=== PATIENT | female | born 1970 | race Caucasian/White ===

== ENCOUNTER 2016-07-29 11:31 | Outpatient (CLI) | payer OTHER ==
[~2016-07-29] VITALS: Ht 162.6 cm; Wt 75.8 kg
--- NOTE | ~2016-07-29 | P ---
[facility] [place] [address] PROCEDURE REPORT Name: SHUBHAM BARROS Room #: REG Namita Verma#: [id number] Admission: 07/29/16 Attend Phys: Rusty Powers Discharge: Date of : 68 Report #: [id number] THIS REPORT FOR: //name// CC: MYRA Cid DATE OF SERVICE: 07/29/2016 PROCEDURE PERFORMED: Upper endoscopy with Botox injection and Savary dilation. HISTORY OF PRESENT ILLNESS: The patient is a 45-year-old female with recurrent dysphagia. She underwent an upper esophageal manometry test, which showed hypertensive lower esophageal sphincter. She previously had several dilations in the past which were minimally helpful. We then placed the patient on calcium channel marcellus without any improvement, therefore proceeded with EGD and Botox injection, which was performed just in the last few weeks. She reports mild improvement, but still having significant dysphagia. We therefore discussed possible surgery such as Heller myotomy; however, the plan is to repeat Botox one further time to see if this would be beneficial. DESCRIPTION OF PROCEDURE: The risks and benefits of the procedure were explained to the patient, those risks including but not limited to bleeding, perforation, the risk of sedation. She understood these risks and gave informed consent. Sedation was given using propofol per anesthesia. Next, using a standard Mandoyon upper endoscope, the scope was placed in the patient's mouth and advanced under direct vision through the esophagus, stomach and into the second portion of the duodenum. The esophagus was normal throughout. The GE junction was normal. Overall, the gastric mucosa was normal. The pylorus was normal and patent. The duodenal bulb, first and second portion were all normal. The scope was then brought back into the distal esophagus and Botox was injected into the lower esophageal sphincter area near the GE junction in a 4 quadrant pattern without difficulty. Next, a 51-Wolof Savary dilation was then performed of the esophagus without difficulty. The scope was then withdrawn and the procedure terminated. The patient tolerated the procedure well. IMPRESSION: Normal upper endoscopy. RECOMMENDATIONS: Observe the patient post-Botox injection and a Savary dilation. [facility] [address] [place] [address] PROCEDURE REPORT Name: SHUBHAM BARROS Room #: REG [facility] Santos.#: [id number] Admission: 07/29/16 Attend Phys: Rusty Powers Discharge: Date of : 68 Report #: [id number] Thank you for allowing me to participate in her care. <ELECTRONICALLY SIGNED> By: Rusty Cid MD 07/29/16 1443 [id number] 1112 Rusty Cid MD /nt
[~2016-07-29 11:31] MED LIST: 12 HOUR COLD R120 M1 PO; ALEVE220 MG PO; AMITRIPTYLINE H25 M2 PO; APAP500 PO; AVELOX 400 MG400 MG PO; AZITHROMYCIN PO; CEFTIN500 MG PO; CENESTIN0.9 MG PO; CENESTIN1.25 MG PO; CLONAZEPAM 1 MG1 M1 NG; CLONAZEPAM 1 MG1 M1 PO; CODEINE-GUAIFE120 ML PO; CYMBALTA60 MG PO; DELSYM30 MG/5 M1; DESYREL PO; DIFLUCAN150 MG PO; DILTIAZEM HCL90 MG PO; DOXYCYCLINE 10100 MG PO; ESTRACE2 M3 PO; IMITREX100 MG PO; LEVOTHROID25 MCG PO; LEVOTHYROXIN0.075 MG PO; LEVOTHYROXINE0.05 MG PO; LIVALO4 MG PO; LORTAB 7.5/5001 TA3 PO; LORTABELXR PO; LYRICA 50 MG50 M1 PO; LYRICA 50 MG50 MG PO; MOBIC15 MG PO; MOBIC7.5 MG PO; MUCINEX600 MG PO; NEXIUM40 MG PO; NORCO 10-325 T1 EACH PO; ONDANSETRON HCL4 M2 PO; PATADAY2.5 ML OP; PERCOCET 5-3251 EACH PO; PHENERGAN 25 MG25 MG PO; PHENERGAN-CODE120 ML PO; PREDNISONE; PROMETHAZI6.25 MG/2 PO; PROMETHAZI6.25 MG/5 PO; PROMETHAZINE-C120 ML PO; PROTONIX40 M2 PO; RESTORIL15 MG PO; TOPROL XL25 MG PO; TRIAMTERENE/HCT1 CA1 PO; VALIUM5 MG PO; VITAMIN D 5050000 I1 PO; XIFAXAN550 M1 PO; ZANTAC 150MG T150 M1 PO; ZOLOFT PO; ZOLOFT100 MG PO
[2016-07-29 11:52] LABS: ABSOLUTE NEUTROPHILS 6.5 thou/uL (1.4-8.2); BASOPHILS 0.8 % (0.0-2.0); EOSINOPHILS 1.3 % (0.0-3.0); HEMOGLOBIN 12.9 gm/dL (12.0-15.0); LYMPHOCYTES 16.6 % (24.0-44.0); MCH 29.8 pg (26.0-34.0); MCHC 33.9 g/dL (28.0-37.0); MCV 87.7 fL (80.0-100.0); MONOCYTES 5.4 % (1.0-8.0); PLATELET COUNT 232 thou/uL (150-400); POLYS 75.9 % (36.0-66.0); RBC 4.33 mil/uL (4.20-5.00); RDW 12.8 % (10.5-14.5); WBC 8.6 thou/uL (4.0-11.0)
[2016-07-29 11:54] LABS: URINE BILIRUBIN NEGATIVE (Negative); URINE BLOOD NEGATIVE (Negative); URINE COLOR YELLOW; URINE GLUCOSE-RANDOM* NEGATIVE (Negative); URINE KETONES NEGATIVE (Negative); URINE NITRITE NEGATIVE (Negative); URINE PROTEIN (DIPSTICK) NEGATIVE (Negative); URINE UROBILINOGEN 0.2 E.U./dl (0.2-1.0)
[2016-07-29 11:55] LABS: MANUAL DIFF NO
[2016-07-29 12:03] LABS: ANION GAP 8 mmol/L (7-16); BUN 21 mg/dL (7-18); CALCIUM 9.4 mg/dL (8.5-10.1); CHLORIDE 102 mmol/L (98-107); CO2 28 mmol/L (21-32); CREATININE 1.1 mg/dL (0.6-1.3); GLUCOSE 113 mg/dL (70-99); SODIUM 138 mmol/L (136-145)
[2016-07-29 12:09] LABS: ALBUMIN 3.6 g/dL (3.4-5.0); ALKALINE PHOSPHATASE 103 U/L (46-116); DIRECT BILIRUBIN < 0.1 mg/dL (<0.1-0.3); SGOT 21 U/L (15-37); SGPT 23 U/L (30-65); TOTAL BILIRUBIN 0.4 mg/dL (<0.1-1.0); TOTAL PROTEIN 7.2 g/dL (6.4-8.2)
[2016-07-29 13:54] VITALS: BP 102/68
== END 2016-07-29 14:00 | disposition home or self-care (01) ==
LOC: GI 14:00
PROVIDERS: Emergency Medicine
DX: R13.10 Dysphagia, unspecified (principal)
CPT/HCPCS: 62110

== ENCOUNTER → 2016-12-16 | Outpatient (CLI) | payer OTHER | LOC: RAD 01:44 | DX: Z12.31 Encounter for screening mammogram for malignant neoplasm of breast (principal) ==

== ENCOUNTER → 2017-01-06 | Outpatient (CLI) | payer OTHER ==
[~2017-01-06] VITALS: Ht 162.6 cm; Wt 79.4 kg
[~2017-01-06] MED LIST changes: +AMBIEN 5 MG TABL5 M1 PO; +HYDROXYZINE HCL25 M1 PO; +LINZESS72 MCG PO; +NITROGLYCERIN PO; +NITROGLYCERIN0.4 MG SUBLING; +REXULTI0.5 MG PO; +TESSALON PERLE100 MG PO; +VITAMIN D50000 UNIT PO
--- NOTE | ~2017-01-06 | P ---
[facility] [place] [address] PROCEDURE REPORT Name: SHUBHAM BARROS Room #: REG CHRISTINE Verma#: [id number] Admission: 01/06/17 Attend Phys: Rusty Powers Discharge: Date of : 68 Report #: [id number] THIS REPORT FOR: //name// CC: NICCI Cid DATE OF SERVICE: 01/06/2017 PROCEDURE PERFORMED: Upper endoscopy with balloon dilation of the esophagus. HISTORY OF PRESENT ILLNESS: The patient is a 46-year-old female with a history of recurrent dysphagia and chest pain who has undergone extensive workup, she has had multiple dilations in the past, esophageal manometry at one point showed increased lower esophageal sphincter pressure as well as a hypercontractile esophagus. She has undergone trials of Levsin, diltiazem, nitroglycerin as well as Botox injections, and multiple dilations, which have been minimally helpful. Previously, I have dilated with Savary on one occasion with a balloon dilator, which seemed to be most beneficial for her dysphagia. She continues to have upper chest pain, which is thought to be secondary to esophageal dysmotility. The plan today is for EGD with balloon dilation. PROCEDURE: The risks and benefits of the procedure were explained to the patient, those risks including, but not limited to bleeding, perforation, the risk of sedation. She understood these risks and gave informed consent. Sedation was given using propofol per anesthesia. Next, using a standard Fujinon upper endoscope, the scope was placed in the patient's mouth and advanced under direct vision through the esophagus, stomach, and into the second portion of the duodenum. The esophagus was normal throughout. The GE junction was normal. No evidence of esophagitis. No stricture. Upon entering the stomach, a small amount of food residual was noted, otherwise the gastric mucosa was normal. The pylorus was normal and patent. The duodenal bulb, first and second portion were all normal. The scope was then brought back up into the patient's esophagus and a balloon dilation of the GE junction was then performed using a maximum diameter of 18 mm, this was held in place for one minute. There was no evidence of mucosal tear after dilation. The scope was then withdrawn and the procedure terminated. The patient tolerated the procedure well. IMPRESSION: 1. Small food residual noted in the stomach. 2. Otherwise, normal upper endoscopy. RECOMMENDATIONS: 1. Observe the patient post-dilation. 2. Overall, difficult case as the patient has persistent symptoms likely secondary to esophageal dysmotility. She has been on multiple medications in [address] [address] PROCEDURE REPORT Name: SHUBHAM BARROS Room #: REG [facility] Bayron#: [id number] Admission: 01/06/17 Attend Phys: Rusty Powers Discharge: Date of : 68 Report #: [id number] the past. We even discussed surgery. At this point, since she is still having significant pain episodes at times, I recommend trying Lortab on a p.r.n. basis when she has severe pain, otherwise continue Zantac and her other medications. Thank you for allowing me to participate in her care. <ELECTRONICALLY SIGNED> By: Rusty Cid MD 01/08/17 1102 0951 1122 Rusty Cid MD /nt
== END | disposition home or self-care (01) ==
LOC: GI 08:39
DX: R13.10 Dysphagia, unspecified (principal); K22.8 Other specified diseases of esophagus; K21.9 Gastro-esophageal reflux disease without esophagitis; E78.00 Pure hypercholesterolemia, unspecified; F41.8 Other specified anxiety disorders; M79.7 Fibromyalgia; F32.89 Other specified depressive episodes; Z88.0 Allergy status to penicillin; Z90.49 Acquired absence of other specified parts of digestive tract; Z90.710 Acquired absence of both cervix and uterus; Z98.890 Other specified postprocedural states; Z91.040 Latex allergy status; Z88.2 Allergy status to sulfonamides; Z88.6 Allergy status to analgesic agent
CPT/HCPCS: 62110; 62900

== ENCOUNTER → 2017-04-05 | Outpatient (CLI) | payer OTHER ==
[~2017-04-05] VITALS: Ht 162.6 cm; Wt 78.5 kg
[~2017-04-05] MED LIST changes: +AMBIEN 10 MG TA10 MG PO; +ESTRADIOL 1 MG T1 M1 PO; +KLONOPIN1 MG PO; +LEVOXYL75 MCG PO; +MAXZIDE-25 MG1 EACH PO; +SEROQUEL XR200 MG PO; +VISTARIL 25 MG25 M1 PO
--- NOTE | ~2017-04-05 | P ---
[facility] [place] [address] PROCEDURE REPORT Name: SHUBHAM BARROS Room #: REG CHRISTINE Vemra#: [id number] Admission: 04/05/17 Attend Phys: Rusty Powers Discharge: Date of : 68 Report #: [id number] THIS REPORT FOR: //name// CC: NICCI Kingsley DATE OF SERVICE: 04/05/2017 PROCEDURE PERFORMED: Upper endoscopy with esophageal dilation. HISTORY OF PRESENT ILLNESS: The patient is a 46-year-old female with complex history of dysphagia, previously underwent Savary dilations with benefit, began having increasing dysphagia, underwent esophageal manometry suggesting an achalasia type picture. There have been discussions of possible surgery; however, last dilation was performed with a balloon dilation using 18 mm max and this has been the most helpful. She is now having dysphagia again. The plan is for repeat balloon dilation. DESCRIPTION OF PROCEDURE: The risks and benefits of the procedure were explained to the patient. Those risks including but not limited to bleeding, perforation, the risk of sedation. She understood these risks and gave informed consent. Sedation was given using propofol per Anesthesia. Next, using a standard Firebaseinon upper endoscope, the scope was placed in the patient's mouth and advanced under direct vision through the esophagus, stomach and into the second portion of the duodenum. The larynx was normal in appearance. The esophagus was normal throughout. No evidence of obvious stricture or esophagitis. Overall, the gastric mucosa was normal. The pylorus was normal and patent. The duodenal bulb, first and second portion were all normal. The scope was then brought back up into the patient's distal esophagus and CRE balloon catheter was advanced through the scope. Next, the GE junction was dilated initially with an 18 mm, this was held in place for 1 minute; later a 19 mm, also held in place for 1 minute. After the 19, there was a small mucosal tear. No significant bleeding. No further dilations were performed. The scope was then withdrawn and the procedure terminated. The patient tolerated the procedure well. IMPRESSION: Normal upper endoscopy, status post balloon dilation of the gastroesophageal junction as described above. RECOMMENDATIONS: Observe the patient post-procedure. [facility] [address] [place] [address] PROCEDURE REPORT Name: SHUBHAM BARROS [id number] Admission: 04/05/17 Attend Phys: Rusty Powers Discharge: Date of : 68 Report #: [id number] Thank you for allowing me to participate in her care. By: [id number] 51 Rusty Cid MD /nt
== END | disposition home or self-care (01) ==
LOC: GI 08:43
DX: R13.19 Other dysphagia (principal); E78.00 Pure hypercholesterolemia, unspecified; M79.7 Fibromyalgia; F32.89 Other specified depressive episodes; F41.8 Other specified anxiety disorders; K21.9 Gastro-esophageal reflux disease without esophagitis; Z90.49 Acquired absence of other specified parts of digestive tract; Z90.710 Acquired absence of both cervix and uterus; Z98.890 Other specified postprocedural states; Z79.899 Other long term (current) drug therapy; Z91.040 Latex allergy status; Z88.0 Allergy status to penicillin; Z88.2 Allergy status to sulfonamides; Z88.8 Allergy status to other drugs, medicaments and biological substances; Z88.6 Allergy status to analgesic agent; Z87.19 Personal history of other diseases of the digestive system
CPT/HCPCS: 62110; 62900

== ENCOUNTER → 2017-09-20 | Outpatient (CLI) | payer OTHER ==
[~2017-09-20] VITALS: Ht 162.6 cm; Wt 77.1 kg
[~2017-09-20] MED LIST changes: +ACETAMINOPHEN-1 EAC1 PO; +SYNTHROID50 MCG PO; +TYLENOL325 MG PO
--- NOTE | ~2017-09-20 | P ---
[facility] [place] [address] PROCEDURE REPORT Name: SHUBHAM BARROS Room #: REG [facility] Bayron#: [id number] Admission: 09/20/17 Attend Phys: Rusty Powers Discharge: Date of : 68 Report #: [id number] THIS REPORT FOR: //name// CC: Rusty Cid [facility] physician/PCP DATE OF SERVICE: 09/20/2017 PROCEDURE PERFORMED: Upper endoscopy with esophageal dilation. HISTORY OF PRESENT ILLNESS: The patient is a 47-year-old female with a complex history of dysphagia. She previously underwent Savary dilations with benefit, but began having increasing symptoms. Manometry test suggesting achalasia type picture. We have discussed possible surgery in the past; however, balloon dilations of the GE junction have been the most helpful. She is now here for repeat dilation for recurrent dysphagia. DESCRIPTION OF PROCEDURE: The risks and benefits of the procedure were explained to the patient, those risks including but not limited to bleeding, perforation, the risk of sedation. She understood these risks and gave informed consent. Sedation was given using propofol per Anesthesia. Next, using a standard Olympus upper endoscope, the scope was placed in the patient's mouth and advanced under direct vision through the esophagus, stomach and into the second portion of the duodenum. The larynx was normal in appearance. The esophagus was normal throughout. The GE junction was normal. Overall, the gastric mucosa was normal. The pylorus was normal and patent. The duodenal bulb, first and second portion were all normal. The scope was then brought back up into the patient's stomach, into her distal esophagus and a CRE balloon dilator catheter was advanced through the scope. Initially the balloon was dilated to 18 mm and held in place for one minute. No evidence of mucosal tear. Next, 19 mm was held in place for one minute. Small mucosal tear was noted at the GE junction. At this point, no further dilations were performed. There was no evidence of bleeding. The scope was then withdrawn and the procedure terminated. The patient tolerated the procedure well. IMPRESSION: Status post balloon dilation of the GE junction as described above. RECOMMENDATIONS: Observe the patient post-procedure and repeat on a p.r.n. basis. Thank you for allowing me to participate in her care. By: 1033 1130 Rusty Cid MD /nt
== END | disposition home or self-care (01) ==
LOC: GI 08:49
DX: R13.19 Other dysphagia (principal); K21.9 Gastro-esophageal reflux disease without esophagitis; M79.7 Fibromyalgia; F32.9 Major depressive disorder, single episode, unspecified; F41.9 Anxiety disorder, unspecified; E78.5 Hyperlipidemia, unspecified; Z90.49 Acquired absence of other specified parts of digestive tract; Z90.710 Acquired absence of both cervix and uterus; Z98.890 Other specified postprocedural states; Z87.19 Personal history of other diseases of the digestive system; Z88.2 Allergy status to sulfonamides; Z88.8 Allergy status to other drugs, medicaments and biological substances; Z91.040 Latex allergy status; Z88.0 Allergy status to penicillin; Z79.899 Other long term (current) drug therapy
CPT/HCPCS: 62110; 62900

== ENCOUNTER → 2018-02-07 | Outpatient (CLI) | payer OTHER ==
[~2018-02-07] VITALS: Ht 162.6 cm; Wt 74.4 kg
[~2018-02-07] MED LIST changes: +QUETIAPINE FUM300 M1 PO; +TRIAMCINOLONE A80 G2 TOP; +ZOLPIDEM TART12.5 M1 PO
--- NOTE | ~2018-02-07 | P ---
[facility] [place] [address] PROCEDURE REPORT Name: SHUBHAM BARROS Room #: REG CHRISTINE Verma#: [id number] Admission: 02/07/18 Attend Phys: Rusty Powers Discharge: Date of : 68 Report #: [id number] THIS REPORT FOR: //name// CC: MYRA Kinglsey Physician staff DATE OF SERVICE: 02/07/2018 PROCEDURE PERFORMED: Upper endoscopy with esophageal dilation. HISTORY OF PRESENT ILLNESS: The patient is a 47-year-old female with recurrent dysphagia. She underwent extensive testing including manometry suggesting achalasia type picture. We have discussed the surgery in the past; however, balloon dilations of the GE junction have been the most helpful, previous AV dilations were not helpful recently. Last upper endoscopy with balloon dilation was 09/20/2017. She now reports recurrent dysphagia. Plan is for repeat EGD with dilation. DESCRIPTION OF PROCEDURE: The risks and benefits of the procedure were explained to the patient, those risks including but not limited to bleeding, perforation, the risk of sedation. She understood these risks and gave informed consent. Sedation was given using propofol and ketamine per Anesthesia. Next, using a standard Olympus upper endoscope, the scope was placed in the patient's mouth and advanced under direct vision through the esophagus, stomach and into the second portion of the duodenum. The esophagus was normal throughout. The GE junction was normal. Overall, the gastric mucosa was normal. The pylorus was normal and patent. The duodenal bulb, first and second portion were all normal. The scope was then brought back up into the patient's distal esophagus and a CRE 18 mm balloon was inflated at the GE junction and held in place for one minute. No evidence of mucosal tear after dilation. The balloon was reinsufflated to 19 mm, held in place for one minute. A small mucosal tear was noted at this time. No further dilations were performed. No bleeding was noted. At this point, the scope was then withdrawn and the procedure terminated. The patient tolerated the procedure well. IMPRESSION: 1. Status post balloon dilation of the distal esophagus for history of achalasia type picture. 2. Otherwise normal upper endoscopy. RECOMMENDATIONS: 1. Observe the patient post-procedure. 2. Repeat on a p.r.n. basis. [address] [address] PROCEDURE REPORT Name: SHUBHAM BARROS Room #: REG CHRISTINE Verma#: [id number] Admission: 02/07/18 Attend Phys: Rusty Powers Discharge: Date of : 68 Report #: [id number] Thank you for allowing me to participate in her care. <ELECTRONICALLY SIGNED> By: Rusty Cid MD 02/12/18 0903 0928 1548 Rusty Cid MD /nt
== END | disposition home or self-care (01) ==
LOC: GI 08:22
DX: R13.19 Other dysphagia (principal); F32.9 Major depressive disorder, single episode, unspecified; F41.9 Anxiety disorder, unspecified; E78.5 Hyperlipidemia, unspecified; K21.9 Gastro-esophageal reflux disease without esophagitis; M79.7 Fibromyalgia; E03.9 Hypothyroidism, unspecified; Z93.4 Other artificial openings of gastrointestinal tract status; Z90.710 Acquired absence of both cervix and uterus; Z90.49 Acquired absence of other specified parts of digestive tract; Z98.890 Other specified postprocedural states; Z79.899 Other long term (current) drug therapy; Z88.2 Allergy status to sulfonamides; Z88.8 Allergy status to other drugs, medicaments and biological substances; Z91.040 Latex allergy status
CPT/HCPCS: 62110; 62900

== ENCOUNTER → 2018-04-04 | Outpatient (CLI) | payer OTHER ==
[~2018-04-04] VITALS: Ht 162.6 cm; Wt 72.9 kg
[2018-04-04 13:59] VITALS: BP 119/86
== END | disposition home or self-care (01) ==
LOC: PAIN 11:55
DX: M54.16 Radiculopathy, lumbar region (principal); Z88.2 Allergy status to sulfonamides; Z88.8 Allergy status to other drugs, medicaments and biological substances; Z88.1 Allergy status to other antibiotic agents; Z91.040 Latex allergy status; Z79.899 Other long term (current) drug therapy

== ENCOUNTER → 2018-04-18 | Outpatient (CLI) | payer OTHER ==
[~2018-04-18] VITALS: Ht 162.6 cm; Wt 72.3 kg
[~2018-04-18] MED LIST changes: +LATUDA40 MG PO; +ZALEPLON 10 MG10 M1 PO
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
[2018-04-18 10:51] VITALS: BP 109/79
== END | disposition home or self-care (01) ==
LOC: PAIN 10:21
DX: M79.18 Myalgia, other site (principal); E03.9 Hypothyroidism, unspecified; E78.5 Hyperlipidemia, unspecified; M35.00 Sjogren syndrome, unspecified; G43.909 Migraine, unspecified, not intractable, without status migrainosus; K21.9 Gastro-esophageal reflux disease without esophagitis; F32.9 Major depressive disorder, single episode, unspecified; F41.9 Anxiety disorder, unspecified; R42 Dizziness and giddiness; Z91.040 Latex allergy status; Z87.19 Personal history of other diseases of the digestive system; Z79.899 Other long term (current) drug therapy; Z88.8 Allergy status to other drugs, medicaments and biological substances; Z98.890 Other specified postprocedural states

== ENCOUNTER → 2018-04-27 | Outpatient (CLI) | payer OTHER ==
[~2018-04-27] VITALS: Ht 162.6 cm; Wt 72.8 kg
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
[2018-04-27 09:40] VITALS: BP 118/85
--- NOTE | 2018-04-27 10:02 | NUR ---
Pain Clinic Assessment: 1. History of Osteoarthritis: Not Applicable History of Rheumatoid Arthritis: Not Applicable 2. Height: 5 ft. 4 in. 162.6 cm. Weight: 160.6 lb. oz. 72.848 kg. Patient's BMI: 27.6 3. Vital Signs: BP: 118/85 Pulse: 103 Resp: 14 Temp: 02 Sat: 100 ECG Mon: 4. Pain Intensity: 8 5. Fall Risk: Dizziness: N Needs help standing or walking: N Fallen in the last 3 months: N Fall risk comments: 6. Patient on Blood Thinner: None 7. History of Hypertension: N 8. Opioid Therapy greater than 6 weeks: N Opiate Contract Signed: 9. Risk Assessment Tool Provided: MODERATE RISK 10. Functional Assessment Tool: / 11. Recreational Drug Use: Never Drug Type: Tobacco Use: Never Smoker Tobacco Type: Amount or Packs/day: How Many Years: Alcohol Use: No Frequency: Quant:
== END ==
LOC: PAIN 07:43
DX: M54.16 Radiculopathy, lumbar region (principal); E03.9 Hypothyroidism, unspecified; K58.0 Irritable bowel syndrome with diarrhea; M71.9 Bursopathy, unspecified; F32.9 Major depressive disorder, single episode, unspecified; F41.8 Other specified anxiety disorders; M79.7 Fibromyalgia; E78.5 Hyperlipidemia, unspecified; K44.9 Diaphragmatic hernia without obstruction or gangrene; H81.09 Meniere's disease, unspecified ear; K21.9 Gastro-esophageal reflux disease without esophagitis; M35.00 Sjogren syndrome, unspecified; G43.909 Migraine, unspecified, not intractable, without status migrainosus

== ENCOUNTER → 2018-05-09 | Outpatient (CLI) | payer OTHER ==
[~2018-05-09] VITALS: Ht 162.6 cm; Wt 70.8 kg
[~2018-05-09] MED LIST changes: +FLEXERIL PO; +LINZESS145 MCG PO; +VITAMIN D250000 UNIT PO
--- NOTE | ~2018-05-09 | P ---
[facility] [place] [address] PROCEDURE REPORT Name: SHUBHAM BARROS Room #: REG Namita Verma#: [id number] Admission: 05/09/18 Attend Phys: Rusty Powers Discharge: Date of : 68 Report #: [id number] THIS REPORT FOR: //name// CC: MYRA Kingsley DATE OF SERVICE: 05/09/2018 PROCEDURE PERFORMED: Upper endoscopy with esophageal dilation. HISTORY OF PRESENT ILLNESS: The patient is a 47-year-old female well known to me, with a long history of intermittent dysphagia. She has undergone extensive workup, showing achalasia type picture with manometry; however, was not responding to Botox injections. We have discussed possible surgical options in the past; however, balloon dilation of the GE junction has been the most helpful. Previous Savary dilations were not as helpful. Last upper endoscopy with dilation was in 01/2018. She now has recurrent dysphagia. She also complains of abdominal pain after eating. She had a previous cholecystectomy. DESCRIPTION OF PROCEDURE: The risks and benefits of the procedure were explained to the patient, those risks including but not limited to bleeding, perforation, the risk of sedation. She understood these risks and gave informed consent. Sedation was given using propofol per Anesthesia. Next, using a standard Olympus upper endoscope, the scope was placed in the patient's mouth and advanced under direct vision through the esophagus, stomach and into the second portion of the duodenum. The larynx was normal throughout. The esophagus was normal throughout. The GE junction was normal. There was a moderate to large amount of food within the stomach, suggesting gastroparesis. The gastric mucosa that was visualized was normal. The pylorus was normal and patent. The duodenal bulb, first and second portion were all normal. The scope was then brought back up into the patient's distal esophagus and a balloon catheter was advanced through the channel into the esophagus. Initial balloon dilation of the GE junction area was performed at 18 mm and held in place for one minute. No evidence of mucosal tear. I then proceeded with 19 mm balloon dilation. Small mucosal tear was noted after balloon dilation. No evidence of bleeding. No further dilations were performed. At this point, the balloon dilator was removed. The scope was withdrawn and the procedure terminated. The patient tolerated the procedure well. IMPRESSION: 1. Status post balloon dilation as described above. 2. Food residual in the stomach suggesting gastroparesis. 3. Otherwise, normal upper endoscopy. RECOMMENDATIONS: [facility] [address] [place] [address] PROCEDURE REPORT Name: SHUBHAM BARROS Room #: REG [facility] Gerald.#: [id number] Admission: 05/09/18 Attend Phys: Rusty Powers Discharge: Date of : 68 Report #: [id number] 1. Observe the patient post dilation. 2. We will discuss options including possible promotility agent such as Reglan or erythromycin with the patient in the near future. Thank you for allowing me to participate in her care. By: [id number] [id number] Rusty Cid MD /nt
== END | disposition home or self-care (01) ==
LOC: GI 09:08
DX: K31.84 Gastroparesis (principal); R13.19 Other dysphagia; K21.9 Gastro-esophageal reflux disease without esophagitis; E78.5 Hyperlipidemia, unspecified; E03.9 Hypothyroidism, unspecified; M79.7 Fibromyalgia; F41.9 Anxiety disorder, unspecified; F32.9 Major depressive disorder, single episode, unspecified; Z90.710 Acquired absence of both cervix and uterus; Z93.4 Other artificial openings of gastrointestinal tract status; Z90.49 Acquired absence of other specified parts of digestive tract; Z98.890 Other specified postprocedural states; Z79.899 Other long term (current) drug therapy; Z91.040 Latex allergy status; Z88.2 Allergy status to sulfonamides; Z88.8 Allergy status to other drugs, medicaments and biological substances
CPT/HCPCS: 62110; 62900

== ENCOUNTER → 2018-06-27 | Outpatient (CLI) | payer OTHER ==
[~2018-06-27] VITALS: Ht 162.6 cm; Wt 71.4 kg
[~2018-06-27] MED LIST changes: +IPRATROPIU0.2 MG/1 M INH; +PROTONIX40 M1 PO
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
[2018-06-27 12:59] VITALS: BP 108/68
--- NOTE | 2018-06-27 13:32 | NUR ---
Pain Clinic Assessment: 1. History of Osteoarthritis: Not Applicable History of Rheumatoid Arthritis: Not Applicable 2. Height: 5 ft. 4 in. 162.6 cm. Weight: 157.4 lb. oz. 71.396 kg. Patient's BMI: 27.0 3. Vital Signs: BP: 108/68 Pulse: 104 Resp: 16 Temp: 02 Sat: 97 ECG Mon: 4. Pain Intensity: 7 5. Fall Risk: Dizziness: Y Needs help standing or walking: N Fallen in the last 3 months: N Fall risk comments: 6. Patient on Blood Thinner: None 7. History of Hypertension: N 8. Opioid Therapy greater than 6 weeks: N Opiate Contract Signed: 9. Risk Assessment Tool Provided: MODERATE RISK 10. Functional Assessment Tool: 11. Recreational Drug Use: Never Drug Type: Tobacco Use: Never Smoker Tobacco Type: Amount or Packs/day: How Many Years: Alcohol Use: No Frequency: Quant:
== END | disposition home or self-care (01) ==
LOC: PAIN 07:45
DX: M54.16 Radiculopathy, lumbar region (principal); M79.18 Myalgia, other site; G89.29 Other chronic pain; E03.9 Hypothyroidism, unspecified; E78.5 Hyperlipidemia, unspecified; M35.00 Sjogren syndrome, unspecified; G43.909 Migraine, unspecified, not intractable, without status migrainosus; K21.9 Gastro-esophageal reflux disease without esophagitis; F32.9 Major depressive disorder, single episode, unspecified; F41.9 Anxiety disorder, unspecified; Z87.19 Personal history of other diseases of the digestive system; Z98.890 Other specified postprocedural states; Z79.899 Other long term (current) drug therapy; Z91.040 Latex allergy status; Z88.8 Allergy status to other drugs, medicaments and biological substances; Z88.2 Allergy status to sulfonamides

== ENCOUNTER → 2018-07-25 | Outpatient (CLI) | payer OTHER ==
[~2018-07-25] VITALS: Ht 162.6 cm; Wt 71.2 kg
[~2018-07-25] MED LIST changes: +MELATIN3 MG PO; +PATADAY2.5 ML OPHTHALMIC
--- NOTE | ~2018-07-25 | P ---
[facility] [place] [address] PROCEDURE REPORT Name: SHUBHAM BARROS Room #: REG CHRISTINE Verma#: [id number] Admission: 07/25/18 ������������������ Attend Phys: Rusty Powers Discharge: ������������������ Date of : 68 Report #: [id number] THIS REPORT FOR: //name// CC: MYRA Cid Physician staff DATE OF SERVICE: 07/25/2018 PROCEDURE PERFORMED: Upper endoscopy with esophageal dilation and Botox injection. HISTORY OF PRESENT ILLNESS: The patient is a 47-year-old female with a long history of intermittent dysphagia and gastroesophageal reflux disease. She is currently taking Protonix b.i.d. She has undergone her extensive workup showing an achalasia type picture with manometry, at one time was responding to simple Savary dilations. We then tried Botox, which was helpful, but then was not as helpful over time. We have discussed surgical options in the past; however, balloon dilations were also helpful at one time at the GE junction. Her last upper endoscopy on 05/09/2018. I performed a balloon dilation at the distal esophagus with a 19 mm balloon. She had minimal benefit after this procedure. She is now having increased burning as well as dysphagia, typically high dysphagia. The plan is to proceed with Savary dilation today as well as Botox injection. DESCRIPTION OF PROCEDURE: The risks and benefits of the procedure were explained to the patient, those risks including but not limited to bleeding, perforation and the risk of sedation. She understood these risks and gave informed consent. Sedation was given using propofol and ketamine per Anesthesia. Next, using a standard Olympus upper endoscope, the scope was placed in the patient's mouth and advanced under direct vision through the esophagus, stomach and into the second portion of the duodenum. The larynx was normal in appearance. The upper and mid esophagus was normal. The GE junction was normal. No evidence of esophagitis or obvious stricture. Overall, the gastric mucosa was normal. The pylorus was normal and patent. The duodenal bulb, first and second portion were all normal. The scope was then brought back up into the patient's stomach and a Savary guidewire was inserted through the scope, leaving the guidewire in place as the scope was then withdrawn. Next, a 51-Mongolian Savary dilation of the esophagus was then performed without difficulty. The wire and dilator were removed. The scope was reintroduced into the patient's stomach. There was no evidence of mucosal tear after dilation. Next, an injection needle catheter was advanced through the scope and I proceeded to inject Botox in 4 separate quadrants, 1 mL a piece just above the GE junction in the lower esophageal sphincter area. No evidence of bleeding after injection. The scope was then withdrawn and the procedure terminated. [facility] [address] [place] [address] PROCEDURE REPORT Name: SHUBHAM BARROS Room #: REG CHRISTINE Verma#: [id number] Admission: 07/25/18 ������������������ Attend Phys: Rusty Powers Discharge: ������������������ Date of : 68 Report #: [id number] The patient tolerated the procedure well. IMPRESSION: Normal upper endoscopy, status post Savary dilation with Botox injection in the lower esophageal sphincter area. RECOMMENDATIONS: Observe the patient post-procedure. Thank you for allowing me to participate in her care. ��������������������������������������������� ���������������������������������������� By: ��������������������������������������������� 0912 19 Rusty Cid MD /nt
== END | disposition home or self-care (01) ==
LOC: GI 07:25
DX: R13.19 Other dysphagia (principal); K22.0 Achalasia of cardia; K21.9 Gastro-esophageal reflux disease without esophagitis; E78.5 Hyperlipidemia, unspecified; M79.7 Fibromyalgia; E03.9 Hypothyroidism, unspecified; F32.9 Major depressive disorder, single episode, unspecified; F41.9 Anxiety disorder, unspecified; Z79.899 Other long term (current) drug therapy; Z90.710 Acquired absence of both cervix and uterus; Z90.49 Acquired absence of other specified parts of digestive tract; Z98.890 Other specified postprocedural states; Z93.4 Other artificial openings of gastrointestinal tract status; Z88.0 Allergy status to penicillin; Z91.040 Latex allergy status; Z88.2 Allergy status to sulfonamides; Z88.8 Allergy status to other drugs, medicaments and biological substances
CPT/HCPCS: 62110; 62900

== ENCOUNTER → 2018-09-21 | Outpatient (CLI) | payer OTHER ==
[~2018-09-21] VITALS: Ht 162.6 cm; Wt 68.0 kg
[~2018-09-21] MED LIST changes: +AMITRIPTYLINE H10 M3 PO; +DELSYM COU30 MG/5 M1 PO
--- NOTE | ~2018-09-21 | P ---
[facility] [place] [address] PROCEDURE REPORT Name: SHUBHAM BARROS Room #: REG Namita Verma#: [id number] Admission: 09/21/18 ������������������ Attend Phys: Rusty Powers Discharge: ������������������ Date of : 68 Report #: [id number] THIS REPORT FOR: //name// CC: MYRA Cid Physician staff DATE OF SERVICE: 09/21/2018 PROCEDURE PERFORMED: Upper endoscopy with esophageal dilation. HISTORY OF PRESENT ILLNESS: The patient is a 48-year-old female with a long history of intermittent dysphagia, gastroesophageal reflux disease, and complaints of burning in her chest. The patient has been taking Protonix b.i.d. She has undergone an extensive workup in the past showing achalasia type picture with manometry. She was responding to Savary dilations in the past. We also tried Botox, which was helpful for a period of time, but then lost its effectiveness. We discussed surgical options in the past; however, balloon dilations were helpful at one time. Her last upper endoscopy was on 07/25/2018. I performed a Savary dilation at that time because she was complaining of high dysphagia. She did respond to this for several months, but now again complains of dysphagia. We also proceeded with a repeat Botox injection last upper endoscopy as well. We have tried Carafate and viscous lidocaine for her burning sensation in her throat, most recently increased her Elavil from 10 to 20 mg, which was helpful for a short period of time. The plan is to repeat upper endoscopy today with dilation. DESCRIPTION OF PROCEDURE: The risks and benefits of the procedure were explained to the patient, those risks including but not limited to bleeding, perforation, the risk of sedation. She understood these risks and gave informed consent. Sedation was given using propofol and Versed per anesthesia. Next, using a standard Olympus upper endoscope, the scope was placed in the patient's mouth and advanced under direct vision through the esophagus, stomach and into the second portion of the duodenum. The larynx was normal in appearance. The upper and mid esophagus was normal in appearance. In the distal esophagus; however, at the GE junction, there was evidence of esophagitis with several ulcerations. No active bleeding. There was clean white base to the ulcerations. This was not present on previous endoscopies. Overall, the gastric mucosa was normal. The pylorus was normal and patent. The duodenal bulb, first and second portion were all normal. The scope was then brought back up into the patient's stomach and a Savary guidewire was inserted through the scope, leaving the Savary wire in place as the scope was then withdrawn. Next, I proceeded with a 51 followed by a 54-Slovenian Savary dilation of the esophagus without difficulty. The wire was removed. The scope was reintroduced. There was no evidence of mucosal tear after dilation. At this point, the scope was [facility] [address] [place] [address] PROCEDURE REPORT Name: SHUBHAM BARROS Room #: REG CHRISTINE Verma#: [id number] Admission: 09/21/18 ������������������ Attend Phys: Rusty Powers Discharge: ������������������ Date of : 68 Report #: [id number] then withdrawn and the procedure terminated. The patient tolerated the procedure well. IMPRESSION: 1. Esophagitis with ulceration at the GE junction. Etiology of this is unclear. The patient has not had this in the past. She is on Protonix b.i.d. She did undergo Botox injection 2 months ago. Would suspect this would not be a result of the Botox, but a possibility. Also, consider pill esophagitis as she does have a history of achalasia type picture on manometry previously. 2. Otherwise, normal upper endoscopy. RECOMMENDATIONS: 1. Observe the patient post-dilation. 2. Continue b.i.d. PPI therapy. 3. We will reaffirm with the patient that she is taking her Carafate in a liquid format 3-4 times per day. 4. The plan is to increase her Elavil to see if there is a benefit in the burning sensation as well. Thank you for allowing me to participate in her care. ��������������������������������������������� ���������������������������������������� By: ��������������������������������������������� [id number] Rusty Cid MD /taina
== END | disposition home or self-care (01) ==
LOC: GI 07:11
DX: K22.10 Ulcer of esophagus without bleeding (principal); K21.9 Gastro-esophageal reflux disease without esophagitis; R13.19 Other dysphagia; E03.9 Hypothyroidism, unspecified; E78.5 Hyperlipidemia, unspecified; M79.7 Fibromyalgia; R05 Cough; F32.9 Major depressive disorder, single episode, unspecified; F41.9 Anxiety disorder, unspecified; Z98.890 Other specified postprocedural states; Z90.49 Acquired absence of other specified parts of digestive tract; Z90.710 Acquired absence of both cervix and uterus; Z87.19 Personal history of other diseases of the digestive system; Z79.899 Other long term (current) drug therapy; Z93.4 Other artificial openings of gastrointestinal tract status; Z88.2 Allergy status to sulfonamides; Z88.0 Allergy status to penicillin; Z88.8 Allergy status to other drugs, medicaments and biological substances; Z91.040 Latex allergy status

== ENCOUNTER → 2018-11-26 | Outpatient (CLI) | payer OTHER ==
[~2018-11-26] VITALS: Ht 162.6 cm; Wt 70.3 kg
[~2018-11-26] MED LIST changes: +CARAFATE1 GM/10 ML PO; +TRAZODONE HCL50 MG PO
--- NOTE | 2018-11-27 14:56 | P ---
[facility] [place] [address] PROCEDURE REPORT Name: SHUBHAM BARROS Room #: REG CHRISTINE Verma#: [id number] Admission: 11/26/18 ������������������ Attend Phys: Rusty Powers Discharge: ������������������ Date of : 68 Report #: [id number] THIS REPORT FOR: //name// CC: MYRA Cid Physician staff DATE OF SERVICE: 11/26/2018 PROCEDURE PERFORMED: Upper endoscopy with esophageal dilation. HISTORY OF PRESENT ILLNESS: The patient is a 48-year-old female with a long history of gastroesophageal reflux disease as well as dysphagia. She has undergone multiple upper endoscopies with dilations in the past, currently taking Protonix b.i.d. as well as Carafate and Zantac at night, originally was responding well to Savary dilations; however, it began to lose its effectiveness over time. She underwent 2 esophageal manometries both of which showed possible early achalasia type picture. We therefore started Botox injections, which was somewhat helpful at times. Her last upper endoscopy was performed on 09/21/2018. This was 2 months after her last Botox injection. Interestingly, she had ulcerations near her GE junction, which was a new finding. This is unclear etiology as it had been 2 months since her Botox we were speculating possibly a pill dysphagia. She did get a benefit from the last dilation. We have discussed the possibility of surgery in the past; however, this has been a difficult picture as previous manometries did not show clear achalasia. She also complains of burning in her chest despite taking viscous lidocaine at times, b.i.d. PPI therapy, Zantac, Carafate. She has also been treated with Elavil. Plan is for repeat upper endoscopy. DESCRIPTION OF PROCEDURE: The risks and benefits of the procedure were explained to the patient, those risks including, but not limited to bleeding, perforation and the risk of sedation. She understood these risks and gave informed consent. Sedation was given using propofol per anesthesia. Next, using a standard Olympus upper endoscope, the scope was placed in the patient's mouth and advanced under direct vision through the esophagus, stomach and into the second portion of the duodenum. The larynx was normal in appearance. The mid and upper esophagus were essentially normal, possibly mildly dilated. At the GE junction, the previous esophagitis was much improved. In fact, right at the GE junction, there was no inflammation; however, just proximal to this area, there was a small area of inflammation and ulceration. There also appears to be a little bit of a narrowing in this area. The scope passed through this area without difficulty. Overall, the gastric mucosa was normal. The pylorus was normal and patent. The duodenal bulb, first and second portion were all normal. The scope was then brought back up into the patient's stomach and a Savary guidewire was inserted through the scope. The scope was then withdrawn leaving [address] [address] PROCEDURE REPORT Name: SHUBHAM BARROS Room #: REG CHRISTINE Verma#: [id number] Admission: 11/26/18 ������������������ Attend Phys: Rusty Powers Discharge: ������������������ Date of : 68 Report #: [id number] the guidewire in place. Next, a 54 Savary dilation of the esophagus was performed without difficulty. The wire and dilator were removed. The scope was reintroduced into the patient's stomach. There was a small mucosal tear near the GE junction near the ulceration. No significant bleeding was noted. At this point, the scope was then withdrawn and the procedure terminated. The patient tolerated the procedure well. IMPRESSION: 1. Single ulceration proximal to the gastroesophageal junction. This area of inflammation has improved significantly since last upper endoscopy. 2. Status post dilation today. 3. Otherwise, normal upper endoscopy. RECOMMENDATIONS: 1. Observe the patient post procedure. 2. Continue current medical therapy with the exception of dropping Zantac at night. 3. Again, we discussed the possibility of achalasia. May need to consider repeat esophageal manometry since it has been sometime since her last manometry to see if there are any changes. The question has been if the patient would benefit from a possible Heller myotomy. She may be having that ulceration in the distal esophagus due to pill esophagitis. Thank you for allowing me to participate in her care. ��������������������������������������������� <ELECTRONICALLY SIGNED> ���������������������������������������� By: Rusty Cid MD ��������������������������������������������� 11/27/18 1456 [id number] [id number] Rusty Cid MD /nt
== END | disposition home or self-care (01) ==
LOC: GI 06:56
DX: K25.9 Gastric ulcer, unspecified as acute or chronic, without hemorrhage or perforation (principal); K21.9 Gastro-esophageal reflux disease without esophagitis; R13.19 Other dysphagia; E03.9 Hypothyroidism, unspecified; E78.5 Hyperlipidemia, unspecified; M79.7 Fibromyalgia; F32.9 Major depressive disorder, single episode, unspecified; F41.9 Anxiety disorder, unspecified; R05 Cough; Z98.890 Other specified postprocedural states; Z93.4 Other artificial openings of gastrointestinal tract status; Z87.19 Personal history of other diseases of the digestive system; Z90.49 Acquired absence of other specified parts of digestive tract; Z90.710 Acquired absence of both cervix and uterus; Z88.2 Allergy status to sulfonamides; Z88.0 Allergy status to penicillin; Z91.040 Latex allergy status; Z88.8 Allergy status to other drugs, medicaments and biological substances; Z79.899 Other long term (current) drug therapy
CPT/HCPCS: 62110; 62900

== ENCOUNTER → 2019-10-02 | Outpatient (CLI) | payer OTHER ==
[~2019-10-02] VITALS: Ht 162.6 cm; Wt 72.6 kg
[~2019-10-02] MED LIST changes: +NEXIUM 40 MG CA40 M1 PO; +VITAMIN D21250 MC1 PO
--- NOTE | ~2019-10-02 | P ---
[facility] [place] [address] PROCEDURE REPORT Name: SHUBHAM BARROS Room #: REG [facility] Santos.#: [id number] Admission: 10/02/19 Attend Phys: Rusty Powers Discharge: Date of : 68 Report #: [id number] THIS REPORT FOR: cc: Physician not on staff Physician not on staff Rusty Cid MD ~ CC: MYRA Cid Physician staff DATE OF SERVICE: 10/02/2019 PROCEDURE PERFORMED: Upper endoscopy with esophageal dilation. HISTORY OF PRESENT ILLNESS: The patient is a 49-year-old female with a long history of dysphagia diagnosed with achalasia and previous manometry, initially was responding to the esophageal dilations and later Botox injections. This lost its effectiveness over time and therefore underwent a laparoscopic Heller myotomy and repair of diaphragmatic hernia with 180-degree posterior fundoplication by ____ on 02/22/2019. Postoperatively, the patient was doing well, but has had increased dysphagia in the last 2 weeks. She does report mild heartburn symptoms. She is currently taking Nexium b.i.d. She also complains of nausea on a p.r.n. basis. Plan is for a repeat upper endoscopy. DESCRIPTION OF PROCEDURE: The risks and benefits of the procedure were explained to the patient, those risks including but not limited to bleeding, perforation and the risk of sedation. She understood these risks and gave informed consent. Sedation was given using propofol per anesthesia. Next, using a standard Olympus upper endoscope, the scope was placed in the patient's mouth and advanced under direct vision through the esophagus, stomach and into the second portion of the duodenum. The larynx was normal in appearance. In the proximal esophagus, this was somewhat dilated, but otherwise normal. In the mid to distal esophagus, there was a small ulceration noted with what appears to be a mild narrowing in this area. The scope did pass without difficulty. This was approximately 5 cm above the GE junction. The GE junction was normal. Overall, the gastric mucosa was normal. On retroflexion, fundoplication changes were noted. This appears to be intact. The gastric mucosa in the body and the antrum were normal. The pylorus was normal and patent. The duodenal bulb, first and second portion were all normal. The scope was then brought back up into the patient's stomach and a Savary guidewire was inserted through the scope, leaving the guidewire in place as the scope was then withdrawn. Next, a 51-Burmese Savary dilation of the esophagus was performed without difficulty. The wire and dilator were removed. The scope was reintroduced into the patient's stomach. There was a small mucosal tear noted near the GE junction. [address] [address] PROCEDURE REPORT Name: SHUBHAM BARROS Room #: REG CHRISTINE Verma#: [id number] Admission: 10/02/19 Attend Phys: Rusty Powers Discharge: Date of : 68 Report #: [id number] No evidence of bleeding. The scope was then withdrawn and the procedure terminated. The patient tolerated the procedure well. IMPRESSION: 1. Small area of ulceration in the distal esophagus just proximal to the GE junction with mild narrowing, suspect food and/or medications may be causing an irritation in this area. 2. GE junction was normal. 3. Surgical changes of fundoplication were noted to be intact. RECOMMENDATIONS: 1. Observe the patient post-dilation. 2. We will add Carafate at this time. 3. Continue Nexium b.i.d. 4. If dysphagia continues, may consider upper GI for further evaluation. Thank you for allowing me to participate in her care. By: 0849 0927 Rusty Cid MD /nt
== END | disposition home or self-care (01) ==
LOC: GI 07:23
DX: R13.10 Dysphagia, unspecified (principal); K22.10 Ulcer of esophagus without bleeding; K22.2 Esophageal obstruction; R12 Heartburn; K21.9 Gastro-esophageal reflux disease without esophagitis; E03.9 Hypothyroidism, unspecified; E78.5 Hyperlipidemia, unspecified; F32.9 Major depressive disorder, single episode, unspecified; F41.9 Anxiety disorder, unspecified; M79.7 Fibromyalgia; R05 Cough; G47.30 Sleep apnea, unspecified; Z98.890 Other specified postprocedural states; Z79.899 Other long term (current) drug therapy; Z90.49 Acquired absence of other specified parts of digestive tract; Z11.59 Encounter for screening for other viral diseases; Z98.0 Intestinal bypass and anastomosis status; Z88.2 Allergy status to sulfonamides; Z88.8 Allergy status to other drugs, medicaments and biological substances
CPT/HCPCS: 62110; 62900

== ENCOUNTER → 2019-10-30 | Outpatient (CLI) | payer OTHER ==
[~2019-10-30] VITALS: Ht 162.6 cm; Wt 70.8 kg
[~2019-10-30] MED LIST changes: +CARAFATE1 GM PO
--- NOTE | ~2019-10-30 | P ---
[facility] [place] [address] PROCEDURE REPORT Name: SHUBHAM BARROS Room #: REG Namita Verma#: [id number] Admission: 10/30/19 Attend Phys: Rusty Powers Discharge: Date of : 68 Report #: [id number] THIS REPORT FOR: cc: MYRA PULIDO Physician not on staff Rusty Cid MD ~ CC: MYRA Cid Physician staff DATE OF SERVICE: 10/30/2019 PROCEDURE PERFORMED: Upper endoscopy with Botox injection. HISTORY OF PRESENT ILLNESS: The patient is a 49-year-old female with a long history of gastroesophageal reflux disease and dysphagia. For a long period of time, she was tolerating a simple Savary dilations, which were helpful. As lost its effectiveness, we later went to an esophageal manometry suggesting achalasia type picture. The patient then underwent Botox injections in the past, which were helpful, but then became not effective eventually underwent a laparoscopic Heller myotomy with a partial fundoplication. She was doing well after surgery for a short period of time, but then began having both recurrent heartburn and dysphagia. I performed an upper endoscopy on 10/02/2019 with dilation, which was not helpful and upper GI was then performed on 10/10/2019 which showed barium pooling and barium column occurring in the mildly dilated distal esophagus with mild narrowing at the GE junction. We therefore discussed possibly proceeding with Botox injection again. DESCRIPTION OF PROCEDURE: The risks and benefits of the procedure were explained to the patient, those risks including but not limited to bleeding, perforation, the risk of sedation. She understood these risks and gave informed consent. Sedation was given using propofol per anesthesia. Next, using a standard Olympus upper endoscope, the scope was placed in the patient's mouth and advanced under direct vision through the esophagus into the stomach, at which point a large food residual was noted within the stomach. The scope was then brought back up into the distal esophagus. I then proceeded with injecting Botox in a 4-quadrant manner without difficulty. There was no evidence of bleeding after injection. At this point, the scope was then withdrawn and the procedure terminated. The patient tolerated the procedure well. IMPRESSION: 1. Large food residual in the stomach suggesting gastroparesis. 2. Status post Botox injection in the lower esophageal sphincter area as described above. [address] [address] PROCEDURE REPORT Name: SHUBHAM BARROS Room #: REG CHRISTINE Verma#: [id number] Admission: 10/30/19 Attend Phys: Rusty Powers Discharge: Date of : 68 Report #: [id number] RECOMMENDATIONS: 1. Observe the patient post-procedure. 2. We will discuss possible promotility medication with the patient. Thank you for allowing me to participate in her care. By: 0950 1035 Rusty Cid MD /nt
== END | disposition home or self-care (01) ==
LOC: GI 07:52
PROVIDERS: ATTEND Specialist
DX: K21.9 Gastro-esophageal reflux disease without esophagitis (principal); R13.10 Dysphagia, unspecified; K31.84 Gastroparesis; E78.5 Hyperlipidemia, unspecified; E03.9 Hypothyroidism, unspecified; F32.9 Major depressive disorder, single episode, unspecified; F41.9 Anxiety disorder, unspecified; G47.30 Sleep apnea, unspecified; R05 Cough; M79.7 Fibromyalgia; Z11.59 Encounter for screening for other viral diseases; Z98.890 Other specified postprocedural states; Z90.49 Acquired absence of other specified parts of digestive tract; Z90.710 Acquired absence of both cervix and uterus; Z79.899 Other long term (current) drug therapy; Z88.0 Allergy status to penicillin; Z88.2 Allergy status to sulfonamides; Z91.040 Latex allergy status; Z88.8 Allergy status to other drugs, medicaments and biological substances
CPT/HCPCS: 62110; 62900

== ENCOUNTER → 2019-12-20 | Outpatient (CLI) | payer OTHER | LOC: LAB 10:46 | PROVIDERS: ATTEND Student in an Organized Health Care Education/Training Program | DX: Z01.818 Encounter for other preprocedural examination (principal); Z11.59 Encounter for screening for other viral diseases ==

== ENCOUNTER → 2019-12-25 | Outpatient (CLI) | payer OTHER ==
[~2019-12-25] VITALS: Ht 162.6 cm; Wt 72.6 kg
[~2019-12-25] MED LIST changes: +HYDROXYZINE HCL25 M2 PO; +HYDROXYZINE HCL50 MG PO; +[UNRECOGNIZED DRUG - OTHER] IM
--- NOTE | ~2019-12-25 | P ---
[facility] [place] [address] PROCEDURE REPORT Name: SHUBHAM BARROS Room #: REG CHRISTINE Verma#: [id number] Admission: 12/25/19 Attend Phys: Rusty Powers Discharge: Date of : 68 Report #: [id number] THIS REPORT FOR: cc: MYRA PULIDO Physician not on staff Rusty Cid MD ~ CC: MYRA Cid Physician staff DATE OF SERVICE: 12/25/2019 PROCEDURE PERFORMED: Upper endoscopy with Savary and balloon dilation. HISTORY OF PRESENT ILLNESS: The patient is a 49-year-old female with a long history of recurrent dysphagia, who has undergone multiple dilations in the past. Eventually was diagnosed with likely achalasia, underwent a laparoscopic Heller myotomy with partial fundoplication, was doing well after surgery for a period of time, but began having recurrent heartburn and dysphagia. She has been dilated on 10/02/2019 without much improvement. We then performed a repeat Botox injection on 10/30/2019, still with continued dysphagia. She did have an upper GI with small bowel follow through on 10/10/2019. The upper GI showed pooling of barium column in the distal esophagus. Plan is for repeat upper endoscopy for further evaluation and dilation. DESCRIPTION OF PROCEDURE: The risks and benefits of the procedure were explained to the patient, those risks including but not limited to bleeding, perforation and the risk of sedation. She understood these risks and gave informed consent. Sedation was given using propofol per anesthesia. Next, using a standard Olympus upper endoscope, the scope was placed in the patient's mouth and advanced under direct vision through the esophagus, stomach and into the second portion of the duodenum. The larynx was normal in appearance. The upper esophagus was normal. The mid esophagus was somewhat dilated consistent with her history of achalasia. There was a mild narrowing near the GE junction, no obvious stricture. The scope did pass without difficulty. Overall, the gastric mucosa was normal. The pylorus was normal and patent. The duodenal bulb, first and second portion were all normal. The scope was then brought back up into the patient's stomach and a Savary guidewire was inserted through the scope, leaving the guidewire in place as the scope was then withdrawn. Next, a 51-Latvian Savary dilation of the esophagus was performed without difficulty. The wire and dilator removed. The scope was reintroduced into the patient's stomach. No evidence of mucosal tear. Next, I proceeded with balloon dilation of the distal esophagus initially starting with an 18 mm balloon held in place for one minute, then a [address] for one minute. After the 19, there was a small mucosal tear near the GE junction, no further dilations were [facility] [address] [place] [address] PROCEDURE REPORT Name: SHUBHAM BARROS Room #: REG CHRISTINE Verma#: [id number] Admission: 12/25/19 Attend Phys: Rusty Powers Discharge: Date of : 68 Report #: [id number] performed. At this point, the scope was then withdrawn and the procedure terminated. The patient tolerated the procedure well. IMPRESSION: Dilated mid esophagus with mild narrowing and the distal esophagus consistent with achalasia, status post dilation as described above today. RECOMMENDATIONS: 1. Observe the patient post-procedure. 2. We discussed continuing current regimen, but perhaps adding Reglan if she does have intermittent nausea and continued reflux. Thank you for allowing me to participate in her care. By: 0949 1412 Rusty Cid MD /nt
== END | disposition home or self-care (01) ==
LOC: GI 07:27
PROVIDERS: ATTEND Specialist
DX: R13.10 Dysphagia, unspecified (principal); K22.2 Esophageal obstruction; K22.0 Achalasia of cardia; K21.9 Gastro-esophageal reflux disease without esophagitis; E78.5 Hyperlipidemia, unspecified; E03.9 Hypothyroidism, unspecified; F32.9 Major depressive disorder, single episode, unspecified; G47.30 Sleep apnea, unspecified; F41.9 Anxiety disorder, unspecified; M79.7 Fibromyalgia; Z79.899 Other long term (current) drug therapy; Z98.890 Other specified postprocedural states; Z90.49 Acquired absence of other specified parts of digestive tract; Z90.710 Acquired absence of both cervix and uterus; Z88.0 Allergy status to penicillin; Z91.040 Latex allergy status; Z88.2 Allergy status to sulfonamides; Z88.8 Allergy status to other drugs, medicaments and biological substances
CPT/HCPCS: 62110; 62900

== ENCOUNTER → 2020-03-09 | Outpatient (CLI) | payer OTHER | LOC: LAB 09:48 | PROVIDERS: ATTEND Specialist | DX: Z01.812 Encounter for preprocedural laboratory examination (principal); Z20.828 Contact with and (suspected) exposure to other viral communicable diseases ==

== ENCOUNTER → 2020-03-13 | Outpatient (CLI) | payer OTHER ==
[~2020-03-13] VITALS: Ht 162.6 cm; Wt 70.3 kg
[~2020-03-13] MED LIST changes: +ROSUVASTATIN CA10 MG PO; +VITAMIN B-12100 MC1 SUBQ
--- NOTE | 2020-03-17 16:06 | PATH ---
[facility] [place] [address] [place] [address] PATHOLOGY RPT PROCEDURE Name: SHUBHAM BARROS Room #: REG CHRISTINE Graham.#: [id number] Admission: 03/13/20 Date of : 68 Discharge: Report #: [id number] Path Case #: [id number] [facility] Accession Number: [id number] . 01 Material submitted: . PART A: cecum - CECAL POLYP PART B: sigmoid colon - SIGMOID COLON POLYP . 01 Clinical history: . SCREENING COLON POLYPS . 02 Diagnosis: A. Polyp, cecal polyp, endoscopic biopsy: - Tubular adenoma. - Negative for high-grade dysplasia. . B. Polyp, sigmoid colon polyp, endoscopic biopsy: - Hyperplastic polyp. - Negative for dysplasia. (IUV:janee; 03/17/2020) QMS 03/17/2020 1311 Local . 02 Electronically signed: . Josefina Villagran MD, Pathologist NPI- [id number] . 01 Gross description: . A. The specimen is received in formalin, labeled "Shubham Barros, cecal polyp" and consists of a fragment of pink-christie tissue measuring 0.3 x 0.3 cm which is entirely submitted in A1. . B. The specimen is received in formalin, labeled "Roxanne, Shubham, sigmoid colon polyp" and consists of 2 fragments of pink-christie tissue measuring 0.2 x 0.1 cm and 0.7 x 0.2 cm which are entirely submitted in B1. (SDY; 03/16/2020) SYU/SYU 03/17/2020 1310 Local . 02 Pathologist provided ICD-10: D12.0, K63.5 . 02 CPT . 611336, 885139 Specimen Comment: A courtesy copy of this report has been sent to [phone] Specimen Comment: Report sent to Performed at: 01 [address] [place] [address] PATHOLOGY RPT PROCEDURE Name: SHUBHAM BARROS [id number] Admission: 03/13/20 Date of : 68 Discharge: Report #: [id number] Path Case #: [id number] [address] [facility] [address], [place] [id number] MD Reggie Florian MD Phone: [phone] Performed at: [address] [facility] [place] [id number] MD Josefina Villagran MD Phone: [phone]
--- NOTE | 2020-03-20 08:14 | P ---
[facility] [place] [address] PROCEDURE REPORT Name: SHUBHAM BARROS Room #: REG Namita Verma#: [id number] Admission: 03/13/20 Attend Phys: Rusty Powers Discharge: Date of : 68 Report #: [id number] THIS REPORT FOR: cc: MYRA PULIDO MD Physician not on staff Rusty Cid MD ~ CC: MYRA Cid Physician staff DATE OF SERVICE: 03/13/2020 PROCEDURE PERFORMED: Upper endoscopy with esophageal dilation. HISTORY OF PRESENT ILLNESS: The patient is a 49-year-old female with a long history of recurrent dysphagia undergone multiple dilations in the past. Eventually was diagnosed with achalasia, underwent laparoscopic Heller myotomy with partial fundoplication, began having recurrent heartburn and dysphagia. She has been dilated several times without much improvement. Last upper endoscopy with dilation I performed, both a Savary dilation as well as a balloon dilation at a mild narrowing at the GE junction, she did report significant improvement. Last dilation was 12/25/2019. Plan is for repeat upper endoscopy with dilation. DESCRIPTION OF PROCEDURE: The risks and benefits of the procedure were explained to the patient, those risks including but not limited to bleeding, perforation and the risk of sedation. She understood these risks and gave informed consent. Sedation was given using propofol per anesthesia. Next, using a standard Olympus upper endoscope, the scope was placed in the patient's mouth and advanced under direct vision through the esophagus, stomach and into the second portion of the duodenum. The larynx was normal in appearance. The upper and mid esophagus was mildly dilated consistent with achalasia. Once again in the distal esophagus, there was a mild narrowing just above the GE junction. No evidence of esophagitis. Overall, the gastric mucosa was normal. The pylorus was normal and patent. The duodenal bulb, first and second portion were all normal. The scope was then brought back up into the patient's stomach and a Savary guidewire was inserted through the scope, leaving the guidewire in place as the scope was then withdrawn. Next, a 51-Icelandic Savary dilation of the esophagus was performed without difficulty. The wire and dilator removed. The scope was reintroduced into the patient's stomach. No evidence of mucosal tear was noted. Next, I performed a balloon dilation in the distal esophagus with an 18, 19, 20 balloon, initially holding the balloon in place at 19 mm for 1 minute. There was no evidence of mucosal tear. Next, held in place at 20 mm for 1 minute. No evidence of mucosal tear after dilation. At this point, the scope was then withdrawn and the procedure terminated. The patient tolerated [address] [address] PROCEDURE REPORT Name: SHUBHAM BARROS Room #: REG CHRISTINE Verma#: [id number] Admission: 03/13/20 Attend Phys: Rusty Powers Discharge: Date of : 68 Report #: [id number] the procedure well. IMPRESSION: 1. Changes consistent with achalasia, mildly dilated proximal and mid esophagus. Mild narrowing near the gastroesophageal junction, status post dilation as described above. 2. Otherwise, normal upper endoscopy. RECOMMENDATIONS: 1. Observe the patient post procedure. 2. Continue PPI therapy. 3. We will proceed with colonoscopy next today. Thank you for allowing me to participate in her care. <ELECTRONICALLY SIGNED> By: Rusty Cid MD 03/20/20 0814 0928 0159 Rusty Cid MD /nt
--- NOTE | 2020-03-20 08:14 | P ---
[facility] [place] [address] PROCEDURE REPORT Name: SHUBHAM ABRROS Room #: REG [facility] Santos.#: [id number] Admission: 03/13/20 Attend Phys: Rusty Powers Discharge: Date of : 68 Report #: [id number] THIS REPORT FOR: cc: MYRA PULIDO MD Physician not on staff Rusty Cid MD ~ CC: MYRA Cid Physician staff DATE OF SERVICE: 03/13/2020 PROCEDURE PERFORMED: Colonoscopy with biopsies. HISTORY OF PRESENT ILLNESS: The patient is a 49-year-old female who presents today for routine screening colonoscopy. She denies any diarrhea or constipation. No family history of colon cancer. DESCRIPTION OF PROCEDURE: The risks and benefits of the procedure were explained to the patient, those risks including but not limited to bleeding, perforation and the risk of sedation. She understood these risks and gave informed consent. Sedation was given using propofol per Anesthesia. Next, a digital rectal exam was initially performed, which was normal. Next, using a standard Olympus colonoscope, the scope was placed in the patient's anus and advanced under direct vision to the cecum. The overall prep was good. In the cecum, there was a 4-mm sessile polyp. This was removed with cold forceps, otherwise normal. Ileocecal valve was normal. The ascending, transverse and descending colon were normal. In the sigmoid colon, a 4-mm sessile polyp also noted and removed with cold forceps, otherwise normal. The rectal mucosa was normal. On retroflexion, no abnormalities were noted. The scope was then withdrawn and the procedure terminated. The patient tolerated the procedure well. IMPRESSION: 1. Two small colonic polyps. 2. Otherwise, normal colonoscopy. RECOMMENDATIONS: 1. Await biopsy results. 2. If polyps are hyperplastic, repeat in 10 years; if adenomatous polyps, repeat in 5 years. [facility] [address] [place] [address] PROCEDURE REPORT Name: SHUBHAM BARROS Room #: REG CHRISTINE Verma#: [id number] Admission: 03/13/20 Attend Phys: Rusty Powers Discharge: Date of : 68 Report #: [id number] Thank you for allowing me to participate in her care. <ELECTRONICALLY SIGNED> By: Rusty Cid MD 03/20/20 0814 0930 0147 Rusty Cid MD /nt
== END | disposition home or self-care (01) ==
LOC: GI 07:08 → EDSTATUS 10:02 → GI 10:19
PROVIDERS: ATTEND Specialist
DX: Z12.11 Encounter for screening for malignant neoplasm of colon (principal); D12.0 Benign neoplasm of cecum; R13.10 Dysphagia, unspecified; K22.2 Esophageal obstruction; E78.5 Hyperlipidemia, unspecified; F32.9 Major depressive disorder, single episode, unspecified; F41.9 Anxiety disorder, unspecified; G47.30 Sleep apnea, unspecified; K44.9 Diaphragmatic hernia without obstruction or gangrene; K21.9 Gastro-esophageal reflux disease without esophagitis; Z98.890 Other specified postprocedural states; Z79.899 Other long term (current) drug therapy; Z90.710 Acquired absence of both cervix and uterus; Z93.4 Other artificial openings of gastrointestinal tract status; Z90.49 Acquired absence of other specified parts of digestive tract; Z91.040 Latex allergy status; Z88.2 Allergy status to sulfonamides; Z88.8 Allergy status to other drugs, medicaments and biological substances
CPT/HCPCS: 62110; 62900

== ENCOUNTER → 2020-05-11 | Outpatient (CLI) | payer OTHER ==
[~2020-05-11] MED LIST changes: +IMITREX 50 MG T50 MG PO
== END ==
LOC: LAB 10:49
PROVIDERS: ATTEND Specialist
DX: Z01.812 Encounter for preprocedural laboratory examination (principal); Z20.822 Contact with and (suspected) exposure to COVID-19

== ENCOUNTER → 2020-05-15 | Outpatient (CLI) | payer OTHER ==
[~2020-05-15] VITALS: Ht 162.6 cm; Wt 75.8 kg
--- NOTE | 2020-05-15 14:26 | P ---
[facility] [place] [address] PROCEDURE REPORT Name: SHUBHAM BARROS Room #: REG CHRISTINE Verma#: [id number] Admission: 05/15/20 Attend Phys: Rusty Powers Discharge: Date of : 68 Report #: [id number] THIS REPORT FOR: cc: MYRA PULIDO MD Physician not on staff Rusty Cid MD ~ DATE OF SERVICE: 05/15/2020 PROCEDURE PERFORMED: Upper endoscopy with Savary and balloon dilation. HISTORY OF PRESENT ILLNESS: The patient is a 49-year-old female who is well known to me with a long history of gastroesophageal reflux disease as well as recurrent dysphagia. She has undergone multiple dilations in the past. Eventually was diagnosed with achalasia and underwent a laparoscopic Heller myotomy with partial fundoplication. She has continued heartburn symptoms despite Nexium 40 b.i.d. She also takes Carafate on a p.r.n. basis. Complains of dysphagia again. Dilations have been helpful. Last dilation was performed early March of last year. Plan is for repeat upper endoscopy with dilation. DESCRIPTION OF PROCEDURE: The risks and benefits of the procedure were explained to the patient, those risks including but not limited to bleeding, perforation and the risk of sedation. She understood these risks and gave informed consent. Sedation was given using propofol per anesthesia. Next, using a standard Olympus upper endoscope, the scope was placed in the patient's mouth and advanced under direct vision through the esophagus, stomach and into the second portion of the duodenum. The larynx and upper esophagus was normal. The mid esophagus was dilated consistent with her history of achalasia. As the scope was advanced, there was a small amount of liquid and food residual within the distal esophagus. This was aspirated away. There was some mild irritation of the distal esophagus, but no ulcerations, no obvious stricture, but again this has always been narrowed near the GE junction. Upon entering the stomach, a moderate amount of food residual was noted in the stomach. Overall, the gastric mucosa that was visualized was normal. The pylorus was normal and patent. The duodenal bulb, first and second portion were all normal. The scope was then brought back up into the patient's stomach and a Savary guidewire was inserted through the scope leaving the guidewire in place as the scope was then withdrawn. Next, a 51-Croatian Savary dilation of the esophagus was then performed without difficulty. The wire and dilator removed. The scope was reintroduced into the patient's esophagus. There was no evidence of mucosal tear. Next, due to her history of narrowing in the distal esophagus, I then performed balloon dilation of the distal esophagus using an 18, 19, 20 mm balloon. The 20 mm was held in place over 1 minute. Once this was deflated, a small mucosal tear was noted. No significant bleeding was noted. At this point, the scope was then withdrawn and the procedure terminated. The patient tolerated the procedure well. [address] [address] PROCEDURE REPORT Name: SHUBHAM BARROS Room #: REG CHRISTINE Verma#: [id number] Admission: 05/15/20 Attend Phys: Rusty Powers Discharge: Date of : 68 Report #: [id number] IMPRESSION: 1. Changes consistent with achalasia again noted, dilation of the mid esophagus, narrowing of the distal esophagus, small amount of food residual and liquid in the esophagus. 2. Food residual within the stomach. 3. Otherwise, normal upper endoscopy. RECOMMENDATIONS: 1. Observe the patient post-procedure and dilation. 2. Continue current therapy of b.i.d. Nexium. Thank you for allowing me to participate in her care. <ELECTRONICALLY SIGNED> By: Rusty Cid MD 05/15/20 1426 0857 1034 Rusty Cid MD /nt
== END | disposition home or self-care (01) ==
LOC: GI 07:16
PROVIDERS: ATTEND Specialist
DX: R13.10 Dysphagia, unspecified (principal); K21.9 Gastro-esophageal reflux disease without esophagitis; K22.0 Achalasia of cardia; K22.8 Other specified diseases of esophagus; K22.2 Esophageal obstruction; E78.5 Hyperlipidemia, unspecified; G47.33 Obstructive sleep apnea (adult) (pediatric); G62.9 Polyneuropathy, unspecified; D64.9 Anemia, unspecified; G43.909 Migraine, unspecified, not intractable, without status migrainosus; F32.9 Major depressive disorder, single episode, unspecified; F41.9 Anxiety disorder, unspecified; M79.7 Fibromyalgia; K58.9 Irritable bowel syndrome, unspecified; Z90.710 Acquired absence of both cervix and uterus; Z90.49 Acquired absence of other specified parts of digestive tract; Z88.0 Allergy status to penicillin; Z88.1 Allergy status to other antibiotic agents; Z88.8 Allergy status to other drugs, medicaments and biological substances; Z98.890 Other specified postprocedural states; Z91.040 Latex allergy status
CPT/HCPCS: 62110; 62900

== ENCOUNTER → 2020-07-24 | Outpatient (CLI) | payer OTHER | LOC: LAB 11:41 | PROVIDERS: ATTEND Specialist | DX: Z01.812 Encounter for preprocedural laboratory examination (principal); Z20.822 Contact with and (suspected) exposure to COVID-19 ==

== ENCOUNTER → 2020-07-29 | Outpatient (CLI) | payer OTHER ==
[~2020-07-29] VITALS: Ht 162.6 cm; Wt 65.8 kg
[~2020-07-29] MED LIST changes: +B12INJ IM; +BACLOFEN 10MG T10 MG PO; +TYLENOL EXTRA500 MG PO; +VITAMIN D350 MCG PO
--- NOTE | 2020-07-31 10:57 | P ---
[facility] [place] [address] PROCEDURE REPORT Name: SHUBHAM BARROS Room #: REG CHRISTINE Verma#: [id number] Admission: 07/29/20 Attend Phys: Rusty Powers Discharge: Date of : 68 Report #: [id number] THIS REPORT FOR: cc: MYRA PULIDO MD Physician not on staff Rusty Cid MD ~ DATE OF SERVICE: 07/29/2020 PROCEDURE PERFORMED: Upper endoscopy with Savary and balloon dilation. HISTORY OF PRESENT ILLNESS: The patient is a 49-year-old female with a long history of dysphagia and recurrent dysphagia as well as gastroesophageal reflux disease. She has undergone multiple dilations in the past. Eventually was diagnosed with achalasia, underwent laparoscopic Heller myotomy with partial fundoplication, later had Botox injection, which was not helpful. Most recently dilations using Savary dilator and balloon dilation have been helpful. Last dilation was 05/15/2020. She is on Nexium b.i.d. and Carafate p.r.n. Plan is for repeat upper endoscopy with dilation. The risks and benefits of the procedure were explained to the patient. Those risks including but not limited to bleeding, perforation and the risk of sedation. She understood these risks and gave informed consent. Sedation was given using propofol per anesthesia. DESCRIPTION OF PROCEDURE: Next, using a standard Olympus upper endoscope, the scope was placed in the patient's mouth and advanced under direct vision through the esophagus, stomach and into the second portion of the duodenum. The larynx was normal in appearance. The upper mid esophagus was dilated consistent with achalasia. There was a small amount of liquid within the esophagus. This was aspirated away. A few small areas of erythema with distal esophagitis was noted. No evidence of ulcerations. There was a narrowing at the GE junction, again noted. Overall, the gastric mucosa was normal. The pylorus was normal and patent. The duodenal bulb, first and second portion were all normal. At this point, the scope was then brought back up into the patient's stomach and a Savary guidewire was inserted through the scope, leaving the guidewire in place. Cystoscope was then withdrawn. Next, a 51-Austrian Savary dilation of the esophagus was then performed without difficulty. The wire and dilator were removed. The scope was reintroduced into the patient's stomach. No evidence of mucosal tear was noted. Next, a CRE balloon dilation of the distal esophagus was then performed using an 18, 19, 20-mm balloon. The balloon was inflated to 20 mm and held in place for a minute. The balloon was then deflated. There was a small mucosal tear noted after dilation. No evidence of bleeding. At this point, the scope was then withdrawn and the procedure terminated. The patient tolerated the procedure well. [address] [address] PROCEDURE REPORT Name: SHUBHAM BARROS Room #: REG Namita Verma#: [id number] Admission: 07/29/20 Attend Phys: Rusty Powers Discharge: Date of : 68 Report #: [id number] IMPRESSION: 1. Changes consistent with achalasia noted. 2. Esophagitis, distal esophagus. 3. Status post Savary and balloon dilation as described above. 4. Otherwise, normal upper endoscopy. RECOMMENDATIONS: 1. Continue current regimen and Nexium b.i.d. and Carafate. 2. Repeat dilation on a p.r.n. basis. Thank you for allowing me to participate in her care. <ELECTRONICALLY SIGNED> By: Rusty Cid MD 07/31/20 1057 0848 06 Rusty Cid MD /nt
== END | disposition home or self-care (01) ==
LOC: GI 07:13
PROVIDERS: ATTEND Specialist
DX: K21.9 Gastro-esophageal reflux disease without esophagitis (principal); R13.10 Dysphagia, unspecified; K22.0 Achalasia of cardia; K21.00 Gastro-esophageal reflux disease with esophagitis, without bleeding; E78.5 Hyperlipidemia, unspecified; E03.9 Hypothyroidism, unspecified; G43.909 Migraine, unspecified, not intractable, without status migrainosus; F32.9 Major depressive disorder, single episode, unspecified; F41.9 Anxiety disorder, unspecified; R05 Cough; M79.7 Fibromyalgia; Z98.890 Other specified postprocedural states; Z90.710 Acquired absence of both cervix and uterus; Z90.49 Acquired absence of other specified parts of digestive tract; Z79.899 Other long term (current) drug therapy
CPT/HCPCS: 62110; 62900

== ENCOUNTER → 2020-11-13 | Outpatient (CLI) | payer OTHER ==
[~2020-11-13] VITALS: Ht 162.6 cm; Wt 67.6 kg
[~2020-11-13] MED LIST changes: +BUSPIRONE HCL15 MG PO; +CRESTOR5 MG PO; +TRAMADOL HCL50 MG PO
--- NOTE | 2020-11-16 17:36 | P ---
[facility] [place] [address] PROCEDURE REPORT Name: SHUBHAM BARROS Room #: REG [facility] Santos.#: [id number] Admission: 11/13/20 Attend Phys: Rusty Powers Discharge: Date of : 68 Report #: [id number] THIS REPORT FOR: cc: MYRA PULIDO MD Physician not on staff Rusty Cid MD ~ cc: Magdaleno Hernandez MD DATE OF SERVICE: 11/13/2020 PROCEDURE PERFORMED: Upper endoscopy with esophageal dilation. HISTORY OF PRESENT ILLNESS: The patient is a 50-year-old female with a long history of recurrent dysphagia. She has a known history of achalasia. She has undergone a Heller myotomy in the past, but continues to have symptoms of dysphagia. She is on PPI therapy as well as Carafate. Plan is for repeat upper endoscopy with dilation. DESCRIPTION OF PROCEDURE: The risks and benefits of the procedure were explained to the patient. Those risks including but not limited to bleeding, perforation and the risk of sedation. She understood these risks and gave informed consent. Sedation was given using propofol per anesthesia. Next, using a standard Olympus upper endoscope, the scope was placed in the patient's mouth and advanced under direct vision through the esophagus, stomach and into the second portion of the duodenum. The upper and mid esophagus were dilated consistent with her history of achalasia. In the distal esophagus, there was irritation, likely secondary to food in this area due to her dysphagia. There was no food noted in the esophagus. Overall, the gastric mucosa was normal. The pylorus was normal and patent. The duodenal bulb, first and second portion were all normal. The scope was then brought back up into the patient's stomach and a Savary guidewire was inserted through the scope, leaving the guidewire in place as the scope was then withdrawn. A 54-C[place]ican Savary dilation of the esophagus was performed without difficulty. The wire and dilator removed. The scope was reintroduced into the patient's stomach. There was no evidence of mucosal tear after dilation. Next, I proceeded with balloon dilation of the lower esophageal sphincter area. Using an 18, 19, 20 balloon, this was held in place for 1 minute at 20 mm. There was no evidence of mucosal tear after dilation. At this point, the balloon was deflated and removed. The scope was then withdrawn and the procedure terminated. The patient tolerated the procedure well. IMPRESSION: 1. Changes consistent with achalasia, distal esophagus with mild inflammation, likely secondary to food residual at times in this area. 2. Otherwise, normal upper endoscopy. [address] [address] PROCEDURE REPORT Name: SHUBHAM BARROS Room #: REG CHRISTINE Verma#: [id number] Admission: 11/13/20 Attend Phys: Rusty Powers Discharge: Date of : 68 Report #: [id number] RECOMMENDATIONS: Observe the patient status post dilation. Plan is for patient to be reevaluated by Surgery for possible redo Heller myotomy. Thank you for allowing me to participate in her care. <ELECTRONICALLY SIGNED> By: Rusty Cid MD 11/16/20 1736 1005 0001 Rusty Cid MD /nt
== END | disposition home or self-care (01) ==
LOC: GI 09:10
PROVIDERS: ATTEND Specialist
DX: R13.10 Dysphagia, unspecified (principal); K22.0 Achalasia of cardia; K21.00 Gastro-esophageal reflux disease with esophagitis, without bleeding; E78.5 Hyperlipidemia, unspecified; G43.909 Migraine, unspecified, not intractable, without status migrainosus; E03.9 Hypothyroidism, unspecified; F32.9 Major depressive disorder, single episode, unspecified; F41.9 Anxiety disorder, unspecified; G47.30 Sleep apnea, unspecified; M79.7 Fibromyalgia; Z98.890 Other specified postprocedural states; Z79.899 Other long term (current) drug therapy; Z90.49 Acquired absence of other specified parts of digestive tract; Z90.710 Acquired absence of both cervix and uterus; Z88.0 Allergy status to penicillin; Z88.2 Allergy status to sulfonamides; Z88.8 Allergy status to other drugs, medicaments and biological substances
CPT/HCPCS: 62110; 62900

== ENCOUNTER → 2021-01-27 | Outpatient (CLI) | payer OTHER ==
[~2021-01-27] VITALS: Ht 162.6 cm; Wt 68.0 kg
[~2021-01-27] MED LIST changes: +MELATONIN10 M1 PO
--- NOTE | 2021-01-28 17:07 | PATH ---
[facility] [address] [place] [address] PATHOLOGY RPT PROCEDURE Name: ANGELIC BARROS Room #: REG CHRISTINE Verma#: [id number] Admission: 01/27/21 Date of : 68 Discharge: Report #: [id number] Path Case #: [id number] [facility] Accession Number: [id number] . 01 Material submitted: . gastrointestinal site - GASTRIC BIOPSY R/O H. PYLORI . 01 Clinical history: . ESOPHAGOGASTRODUODENOSCOPY DYSPHAGIA . 02 Diagnosis: Gastric mucosa, gastric, rule out H. pylori, endoscopic biopsy: - Mild chronic gastritis. - Negative for intestinal metaplasia or atrophy. - Negative for Helicobacter pylori (properly controlled immunohistochemical stain performed). (IUV:pit; 01/28/2021) QTP 01/28/2021 1314 Local . 02 Electronically signed: . Josefina Villagran MD, Pathologist NPI- [id number] . 01 Gross description: . The specimen is submitted in formalin, labeled "Angelic Barros, gastric biopsy". Received are 3 segments of pale christie tissue ranging in size from 0.3 to 0.6 cm in maximum dimensions. The specimen is submitted entirely in cassette A1. ([facility]; 01/27/2021) NRI/NRI 01/27/2021 2207 Local . 02 Pathologist provided ICD-10: K29.50 . 02 CPT . 146909, R84501 Specimen Comment: A courtesy copy of this report has been sent to [phone], [phone] Specimen Comment: [phone] Specimen Comment: Report sent to / DR PULIDO Performed at: [address] [id number] MD Reggie Florian MD Phone: [phone] Performed at: 02 [facility] [address] [place] [address] PATHOLOGY RPT PROCEDURE Name: ANGELIC BARROS [facility]#: [id number] Admission: 01/27/21 Date of : 68 Discharge: Report #: [id number] Path Case #: [id number] [address] [place], [place] [id number] MD Josefina Villagran MD Phone: [phone]
--- NOTE | 2021-01-29 10:23 | P ---
[facility] [place] [address] PROCEDURE REPORT Name: SHUBHAM BARROS [id number] Admission: 01/27/21 Attend Phys: Rusty Powers Discharge: Date of : 68 Report #: [id number] THIS REPORT FOR: cc: IGNACIA KINGSLEY MD Physician not on staff Rusty Cid MD ~ cc: Dr. Ignacia Kingsley DATE OF SERVICE: 01/27/2021 PROCEDURE PERFORMED: Upper endoscopy with biopsies and esophageal dilation. HISTORY OF PRESENT ILLNESS: The patient is a 50-year-old female with a history of recurrent dysphagia, known history of achalasia. She has undergone a Heller myotomy, continues to have symptoms. She is on PPI therapy as well as Carafate. She does report nausea after eating. She has had a previous cholecystectomy. Plan is for upper endoscopy with repeat dilation. DESCRIPTION OF PROCEDURE: The risks and benefits of the procedure were explained to the patient, those risks including but not limited to bleeding, perforation and the risk of sedation. She understood these risks and gave informed consent. Sedation was given using propofol per anesthesia. Next, using a standard Olympus upper endoscope, the scope was placed in the patient's mouth and advanced under direct vision through the esophagus, stomach and into the second portion of the duodenum. The upper and mid esophagus was dilated again consistent with her history of achalasia. Distal esophagus was somewhat narrowed. The GE junction was normal. No significant stricture was noted. Overall, the gastric mucosa was normal in the fundus and body; however, mild gastritis was noted in the antrum. Biopsies were obtained to rule out H. pylori. The pylorus was normal and patent. The duodenal bulb, first and second portion were all normal. The scope was then brought back up into the patient's stomach and a Savary guidewire was inserted through the scope, leaving the wire in place. The scope was then withdrawn. Next, a 54-Kyrgyz Savary dilation of the esophagus was performed without difficulty. Next, the dilator and wire were removed. The scope was reintroduced into the patient's stomach. No evidence of mucosal tear was noted. At this point, a balloon dilation was then performed of the distal esophagus area at the LES. The balloon was inflated to 18, 19 and then [address] for a minute. The balloon was deflated. No evidence of mucosal tear was noted after dilation. At this point, the scope was then withdrawn and the procedure terminated. The patient tolerated the procedure well. IMPRESSION: 1. Changes consistent with achalasia. 2. Status post dilation today. 3. Mild gastritis with biopsies obtained to rule out H. pylori. [address] [address] PROCEDURE REPORT Name: SHUBHAM BARROS Room #: REG CHRISTINE Verma#: [id number] Admission: 01/27/21 Attend Phys: Rusty Powers Discharge: Date of : 68 Report #: [id number] RECOMMENDATIONS: 1. Await biopsies. 2. Continue current regimen. 3. Observe the patient post-dilation. Thank you for allowing me to participate in her care. <ELECTRONICALLY SIGNED> By: Rusty Cid MD 01/29/21 1023 1224 2250 Rusty Cid MD /nt
== END | disposition home or self-care (01) ==
LOC: GI 09:51
PROVIDERS: ATTEND Specialist
DX: R13.10 Dysphagia, unspecified (principal); K29.50 Unspecified chronic gastritis without bleeding; R11.0 Nausea; K21.9 Gastro-esophageal reflux disease without esophagitis; F32.9 Major depressive disorder, single episode, unspecified; F41.9 Anxiety disorder, unspecified; M79.7 Fibromyalgia; G43.909 Migraine, unspecified, not intractable, without status migrainosus; E78.5 Hyperlipidemia, unspecified; E03.9 Hypothyroidism, unspecified; G47.30 Sleep apnea, unspecified; Z98.890 Other specified postprocedural states; Z79.899 Other long term (current) drug therapy; Z90.49 Acquired absence of other specified parts of digestive tract; Z20.822 Contact with and (suspected) exposure to COVID-19; Z90.710 Acquired absence of both cervix and uterus; Z88.2 Allergy status to sulfonamides; Z88.8 Allergy status to other drugs, medicaments and biological substances; Z88.0 Allergy status to penicillin; Z91.040 Latex allergy status
CPT/HCPCS: 62110; 62900

== ENCOUNTER → 2021-03-24 | Outpatient (CLI) | payer OTHER ==
--- NOTE | ~2021-03-24 | P ---
[facility] [place] [address] PROCEDURE REPORT Name: SHUBHAM BARROS Room #: REG [facility] Bayron#: [id number] Admission: 03/24/21 Attend Phys: Rusty Powers Discharge: Date of : 68 Report #: [id number] THIS REPORT FOR: cc: IGNACIA KINGSLEY MD Physician not on staff Rusty Cid MD ~ cc: Ignacia Kingsley MD DATE OF SERVICE: 03/24/2021 PROCEDURE PERFORMED: Upper endoscopy with esophageal dilation. HISTORY OF PRESENT ILLNESS: The patient is a 50-year-old female with a long history of recurrent dysphagia due to achalasia. She has undergone multiple dilations in the past including Botox injections and failed therapy. She therefore underwent a partial Heller myotomy surgery; however, she continues to have dysphagia. She does improve after dilation. Plan is for repeat dilation today. DESCRIPTION OF PROCEDURE: The risks and benefits of the procedure were explained to the patient, those risks including but not limited to bleeding, perforation and the risk of sedation. She understood these risks and gave informed consent. Sedation was given using propofol per Anesthesia. Next, using a standard Olympus upper endoscope, the scope was placed in the patient's mouth and advanced under direct vision through the esophagus, stomach and into the second portion of the duodenum. The larynx was normal in appearance. The proximal and mid as well as partial distal esophagus was dilated consistent with her history of achalasia. There was a narrowing in the distal esophagus just above the GE junction. The GE junction was essentially normal other than mildly narrowed as well. Overall, the gastric mucosa was normal. The pylorus was normal and patent. The duodenal bulb, first and second portion were all normal. The scope was then brought back up into the distal esophagus and a balloon dilation was performed using an 18, 19, 20 mm balloon. The balloon was held at a maximum of [address] for 2 minutes. The balloon was deflated. A small mucosal tear was noted after dilation. There was no evidence of bleeding. At this point, the scope was then withdrawn and the procedure terminated. The patient tolerated the procedure well. IMPRESSION: 1. Changes consistent with achalasia. 2. Otherwise, normal upper endoscopy. RECOMMENDATIONS: 1. Observe the patient post-dilation. 2. Repeat on a p.r.n. basis. [address] [address] PROCEDURE REPORT Name: SHUBHAM BARROS Room #: REG CHRISTINE Verma#: [id number] Admission: 03/24/21 Attend Phys: Rusty Powers Discharge: Date of : 68 Report #: [id number] Thank you for allowing me to participate in her care. By: 1207 1756 Rusty Cid MD /nt
== END | disposition home or self-care (01) ==
LOC: GI 09:56
PROVIDERS: ATTEND Specialist
DX: K22.0 Achalasia of cardia (principal); R13.10 Dysphagia, unspecified; E78.5 Hyperlipidemia, unspecified; E03.9 Hypothyroidism, unspecified; G43.909 Migraine, unspecified, not intractable, without status migrainosus; M79.7 Fibromyalgia; F32.9 Major depressive disorder, single episode, unspecified; F41.9 Anxiety disorder, unspecified; G47.30 Sleep apnea, unspecified; R05.9 Cough, unspecified; K21.9 Gastro-esophageal reflux disease without esophagitis; Z98.890 Other specified postprocedural states; Z79.899 Other long term (current) drug therapy; Z20.822 Contact with and (suspected) exposure to COVID-19; Z90.49 Acquired absence of other specified parts of digestive tract; Z90.710 Acquired absence of both cervix and uterus; Z91.040 Latex allergy status; Z88.8 Allergy status to other drugs, medicaments and biological substances; Z88.2 Allergy status to sulfonamides